=== PATIENT | female | born 2005 | race Asian ===

== ENCOUNTER 2023-08-01 16:03 | Inpatient (IN) ==
[2023-08-01 17:00] LABS: ABS Eosinophils 0.2 10^3/uL (0.0-0.5); ABS Monocytes 0.7 10^3/uL (0.0-0.9); ABS Neutrophils 4.5 10^3/uL (1.5-7.6); Eosinophil % 2.1 %; Hematocrit 38.1 % (35-45); Hemoglobin 13.2 g/dL (11.5-14.3); Lymphocyte % 27.2 %; Mean Corpuscular Hgb Conc 34.6 g/dL (31-36); Mean Corpuscular Volume 92.5 fL (80-97); Mean Platelet Volume 8.4 fL (7.5-11.2); Platelet Count 236 10^3/uL (150-450); Red Blood Count 4.12 10^6/uL (3.63-4.92); Red Cell Distribution Width 13.3 % (12-17); White Blood Count 7.4 10^3/uL (3.8-11.8)
[2023-08-01 17:10] LABS: Albumin 4.8 g/dL (3.2-5.2); CO2 Carbon Dioxide 26 mmol/L (22-32); Calcium 9.7 mg/dL (8.6-10.3); Chloride 106 mmol/L (101-111); Sodium 138 mmol/L (135-145)
[2023-08-01 17:16] LABS: ALT 112 U/L (7-52); Albumin/Globulin Ratio 1.7 (1-3); Alkaline Phosphatase 50 U/L (35-149); Blood Urea Nitrogen 12 mg/dL (6-24); Globulin 2.8 g/dL (2-4); Glucose 98 mg/dL (70-100); Total Protein 7.6 g/dL (6.4-8.9); eGFR CKD-EPI 131.7 (>60)
[2023-08-01 17:18] LABS: Urine Appearance Clear; Urine Bilirubin Negative (Negative); Urine Blood 3+ (Negative); Urine Color Amber; Urine Glucose Negative (Negative); Urine Ketones Negative (Negative); Urine Nitrite Negative (Negative); Urine Protein 2+(100 mg/dL) (Negative); Urine Specific Gravity 1.017 (1.002-1.030); Urine Urobilinogen Negative (Negative)
[2023-08-01 17:21] LABS: Urine Bacteria Absent (Absent); Urine Red Blood Cell 2+(6-10/hpf) (Absent); Urine Squamous Epithelial Cell Present (Absent); Urine White Blood Cell 1+(6-10/hpf) (Absent)
[2023-08-01 17:24] LABS: Anion Gap 6 mmol/L (2-16)
[2023-08-01] MEDS: Lactated Ringers 1000 ml BAG 1,000 ML IV SCH ×3 (18:45→21:53)
[2023-08-01 19:03] LABS: Potassium Redraw 3.8 mmol/L (3.5-5.0)
[2023-08-01 22:39] LABS: Venous Bicarbonate HCO3 25.5 mmol/L (24-28)
[2023-08-01] MEDS ORDERED: Sodium Bicarb 8.4% Vial 50 ML 150 MEQ in D5W 1000 ml BAG 850 ML IV SCH (23:00)
[2023-08-01] MEDS ORDERED: D5W 1000 ml BAG 850 ML with Sodium Bicarb 8.4% Vial 50 ML 150 MEQ IV SCH (23:45)
[2023-08-02 02:27] LABS: Venous Bicarbonate HCO3 30.2 mmol/L (24-28)
[2023-08-02 02:45] LABS: Calcium 8.1 mg/dL (8.6-10.3); Creatinine, Serum 0.6 mg/dL (0.51-0.95); Potassium 3.5 mmol/L (3.5-5.0); eGFR CKD-EPI 131.7 (>60)
[2023-08-02] MEDS: Lactated Ringers 1000 ml BAG 1,000 ML IV SCH ×3 (04:48→18:40)
[2023-08-02 05:50] LABS: ABS Eosinophils 0.2 10^3/uL (0.0-0.5); ABS Lymphocytes 2.2 10^3/uL (1.0-4.8); ABS Monocytes 0.5 10^3/uL (0.0-0.9); ABS Neutrophils 2.7 10^3/uL (1.5-7.6); ABS Nucleated RBC 0.01 10^3/ul; Eosinophil % 3.5 %; Hematocrit 31.7 % (35-45); Hemoglobin 11.2 g/dL (11.5-14.3); Lymphocyte % 38.9 %; Mean Corpuscular Hemoglobin 32.5 pg (27-33); Mean Corpuscular Hgb Conc 35.2 g/dL (31-36); Mean Corpuscular Volume 92.4 fL (80-97); Mean Platelet Volume 8.3 fL (7.5-11.2); Nucleated Red Blood Cells % 0.1 /100 WBC (0.0-0.4); Platelet Count 191 10^3/uL (150-450); Red Blood Count 3.43 10^6/uL (3.63-4.92); Red Cell Distribution Width 12.9 % (12-17); White Blood Count 5.7 10^3/uL (3.8-11.8)
[2023-08-02 06:08] LABS: ALT 133 U/L (7-52); Albumin 3.5 g/dL (3.2-5.2); Albumin/Globulin Ratio 2.1 (1-3); Alkaline Phosphatase 39 U/L (35-149); Blood Urea Nitrogen 8 mg/dL (6-24); CO2 Carbon Dioxide 29 mmol/L (22-32); Calcium 8.2 mg/dL (8.6-10.3); Chloride 104 mmol/L (101-111); Creatinine, Serum 0.58 mg/dL (0.51-0.95); Globulin 1.7 g/dL (2-4); Glucose 77 mg/dL (70-100); Magnesium 1.9 mg/dL (1.9-2.7); Sodium 140 mmol/L (135-145); Total Protein 5.2 g/dL (6.4-8.9); eGFR CKD-EPI 132.8 (>60)
[2023-08-02 06:13] LABS: Anion Gap 7 mmol/L (2-16)
[2023-08-02 07:04] LABS: Creatine Kinase > 18000 U/L (10-223)
[2023-08-02 07:09] LABS: Potassium Redraw 3.7 mmol/L (3.5-5.0)
[2023-08-02] MEDS ORDERED: Influenza vaccine *QUAD* *2023-24* 0.5 ML SYRINGE IM ONE (09:00)
[2023-08-02 09:05] LABS: Creatine Kinase 32373 U/L (10-223)
[2023-08-03] MEDS: Lactated Ringers 1000 ml BAG 1,000 ML IV SCH ×4 (01:25→23:40)
[2023-08-03 06:16] LABS: Hematocrit 31.8 % (35-45); Hemoglobin 11.2 g/dL (11.5-14.3); Mean Corpuscular Hemoglobin 32.6 pg (27-33); Mean Corpuscular Hgb Conc 35.2 g/dL (31-36); Mean Corpuscular Volume 92.6 fL (80-97); Mean Platelet Volume 8.4 fL (7.5-11.2); Platelet Count 191 10^3/uL (150-450); Red Blood Count 3.43 10^6/uL (3.63-4.92); White Blood Count 6.9 10^3/uL (3.8-11.8)
[2023-08-03 06:22] LABS: Albumin 3.6 g/dL (3.2-5.2); Albumin/Globulin Ratio 1.9 (1-3); Calcium 8.6 mg/dL (8.6-10.3); Creatinine, Serum 0.47 mg/dL (0.51-0.95); Globulin 1.9 g/dL (2-4); Potassium 3.6 mmol/L (3.5-5.0); Total Bilirubin 0.6 mg/dL (0.2-1.0); Total Protein 5.5 g/dL (6.4-8.9); eGFR CKD-EPI 139.7 (>60)
[2023-08-03 06:28] LABS: ABS Nucleated RBC 0.01 10^3/ul; Nucleated Red Blood Cells % 0.1 /100 WBC (0.0-0.4)
[2023-08-03 07:34] LABS: ABS Eosinophils 0.2 10^3/uL (0.0-0.5); ABS Monocytes 0.7 10^3/uL (0.0-0.9); ABS Neutrophils 4.3 10^3/uL (1.5-7.6); Lymphocyte % 27.8 %
[2023-08-03 10:09] LABS: INR 1.16 (0.83-1.13)
[2023-08-03 18:11] LABS: Albumin 3.8 g/dL (3.2-5.2); Calcium 8.9 mg/dL (8.6-10.3); Potassium 3.8 mmol/L (3.5-5.0); Total Bilirubin 0.6 mg/dL (0.2-1.0)
[2023-08-03 18:17] LABS: Albumin/Globulin Ratio 1.8 (1-3); Creatinine, Serum 0.6 mg/dL (0.51-0.95); Globulin 2.1 g/dL (2-4); Total Protein 5.9 g/dL (6.4-8.9); eGFR CKD-EPI 131.7 (>60)
[2023-08-04] MEDS: Lactated Ringers 1000 ml BAG 1,000 ML IV SCH ×3 (06:19→19:31)
[2023-08-04 06:24] LABS: ABS Eosinophils 0.2 10^3/uL (0.0-0.5); ABS Lymphocytes 1.8 10^3/uL (1.0-4.8); ABS Monocytes 0.6 10^3/uL (0.0-0.9); ABS Neutrophils 4.7 10^3/uL (1.5-7.6); Eosinophil % 2.9 %; Hematocrit 32.5 % (35-45); Hemoglobin 11.5 g/dL (11.5-14.3); Mean Corpuscular Hemoglobin 32.7 pg (27-33); Mean Corpuscular Hgb Conc 35.4 g/dL (31-36); Mean Corpuscular Volume 92.2 fL (80-97); Mean Platelet Volume 8.2 fL (7.5-11.2); Platelet Count 184 10^3/uL (150-450); Red Blood Count 3.53 10^6/uL (3.63-4.92); White Blood Count 7.3 10^3/uL (3.8-11.8)
[2023-08-04 06:53] LABS: Magnesium 1.9 mg/dL (1.9-2.7); Phosphorus 4.4 mg/dL (2.5-5.0)
[2023-08-04 08:30] LABS: INR 1.08 (0.83-1.13)
[2023-08-04 19:24] LABS: Myoglobin 3617.4 ng/mL (14.3-65.8)
[2023-08-04 19:46] LABS: TSH Ultra Thyroid Stim Horm 1.27 mcIU/mL (0.34-5.60)
[2023-08-05] MEDS: Lactated Ringers 1000 ml BAG 1,000 ML IV SCH ×3 (02:15→18:57)
[2023-08-05 06:57] LABS: INR 1.06 (0.83-1.13)
[2023-08-05 07:03] LABS: Albumin 3.7 g/dL (3.2-5.2); Albumin/Globulin Ratio 1.9 (1-3); Calcium 8.8 mg/dL (8.6-10.3); Creatinine, Serum 0.47 mg/dL (0.51-0.95); Magnesium 1.8 mg/dL (1.9-2.7); Potassium 3.8 mmol/L (3.5-5.0); Total Bilirubin 0.3 mg/dL (0.2-1.0); Total Protein 5.7 g/dL (6.4-8.9); eGFR CKD-EPI 139.7 (>60)
[2023-08-05] MEDS ORDERED: Magnesium Sulfate 2 gm BAG 2 GM/50 ML BAG IVPB ONE (07:04)
[2023-08-05 07:05] LABS: ABS Eosinophils 0.2 10^3/uL (0.0-0.5); ABS Lymphocytes 1.6 10^3/uL (1.0-4.8); ABS Monocytes 0.5 10^3/uL (0.0-0.9); ABS Neutrophils 3.5 10^3/uL (1.5-7.6); ABS Nucleated RBC 0.01 10^3/ul; Eosinophil % 3.2 %; Hematocrit 32.9 % (35-45); Hemoglobin 11.7 g/dL (11.5-14.3); Lymphocyte % 27.1 %; Mean Corpuscular Hemoglobin 32.9 pg (27-33); Mean Corpuscular Hgb Conc 35.6 g/dL (31-36); Mean Corpuscular Volume 92.5 fL (80-97); Mean Platelet Volume 8.3 fL (7.5-11.2); Nucleated Red Blood Cells % 0.2 /100 WBC (0.0-0.4); Platelet Count 192 10^3/uL (150-450); Red Blood Count 3.56 10^6/uL (3.63-4.92); Red Cell Distribution Width 13.1 % (12-17); White Blood Count 5.8 10^3/uL (3.8-11.8)
[2023-08-06] MEDS: Lactated Ringers 1000 ml BAG 1,000 ML IV SCH ×2 (02:12→09:11)
[2023-08-06 06:08] VITALS: BP 95/60
[2023-08-06 06:53] LABS: ABS Eosinophils 0.2 10^3/uL (0.0-0.5); ABS Lymphocytes 1.7 10^3/uL (1.0-4.8); ABS Monocytes 0.5 10^3/uL (0.0-0.9); ABS Neutrophils 3.2 10^3/uL (1.5-7.6); Eosinophil % 3.8 %; Hematocrit 33.6 % (35-45); Hemoglobin 11.9 g/dL (11.5-14.3); Lymphocyte % 30.3 %; Mean Corpuscular Hemoglobin 32.6 pg (27-33); Mean Corpuscular Hgb Conc 35.5 g/dL (31-36); Platelet Count 208 10^3/uL (150-450); Red Blood Count 3.66 10^6/uL (3.63-4.92); Red Cell Distribution Width 12.9 % (12-17); White Blood Count 5.7 10^3/uL (3.8-11.8)
[2023-08-06 07:10] LABS: Albumin 3.6 g/dL (3.2-5.2); Albumin/Globulin Ratio 1.7 (1-3); Calcium 8.8 mg/dL (8.6-10.3); Creatinine, Serum 0.46 mg/dL (0.51-0.95); Globulin 2.1 g/dL (2-4); Magnesium 1.8 mg/dL (1.9-2.7); Potassium 3.8 mmol/L (3.5-5.0); Total Bilirubin 0.3 mg/dL (0.2-1.0); Total Protein 5.7 g/dL (6.4-8.9); eGFR CKD-EPI 140.4 (>60)
[2023-08-06] MEDS ORDERED: Magnesium Sulfate 2 gm BAG 2 GM/50 ML BAG IVPB ONE (07:11)
[2023-08-08 11:29] LABS: JO-1 Antibody <0.2 U
== END 2023-08-06 11:40 | disposition home or self-care (01) | DRG 351 ==
LOC: EDHOLD 16:03 → ED 16:03 → SUATTDRO 19:23 → MED 20:46
PROVIDERS: ADMIT Internal Medicine; ATTEND Student in an Organized Health Care Education/Training Program